=== PATIENT | female | born 1940 | race Caucasian/White ===

== ENCOUNTER 2023-02-02 13:47 | Emergency (ER) | payer MEDICARE, SELFPAY ==
--- NOTE | ~2023-02-02 | XR_ITS ---
EXAMINATION: XR wrist RT 2V INDICATION: Right radius fracture post reduction TECHNIQUE: Two views of the right wrist are obtained. COMPARISON: 1402 hours FINDINGS: A comminuted fracture of the distal radius is again seen. Alignment has been reduced to apt r-anatomic. An ulnar styloid avulsion is again seen. A ventral splint has been applied. No additional fracture is identified. IMPRESSION: 1. Comminuted distal radius fracture reduced to near-anatomic alignment. 2. Ulnar styloid avulsion. Reviewed, dictated and finalized at location B.
--- NOTE | ~2023-02-02 | XR_ITS ---
EXAM: XR wrist RT min 3V DATE: 02/02/2023 14:05 HISTORY: fall, RIGHT WRIST DEFORMITY . COMPARISON: None available. FINDINGS: Decreased mineralization. Transverse and comminuted extra-articular fracture of the distal right radius, with one half shaft width dorsal displacement, 32 degrees posterior angulation, and ap proximately 5 mm impaction. Mildly displaced left ulnar styloid fracture. No lytic or blastic lesion. Joint spaces are maintained. No erosion or periosteal change. Soft tissues within normal limits. IMPRESSION: Transverse, comminuted, displaced, angulated, and impacted extra-articular fracture of th e distal right radius. Mildly displaced right ulnar styloid fracture. Osteopenia. Reviewed, dictated and finalized at location K. IMPRESSION: Transverse, comminuted, displaced, angulated, and impacted extra-ar ticular fracture of the distal right radius. Mildly displaced right ulnar stylo id fracture. Osteopenia.
--- NOTE | ~2023-02-02 | CT_ITS ---
EXAMINATION: CT brain wo con, CT facial bones wo con DATE: 02/02/2023 15:16 INDICATION: Head and facial injury post fall TECHNIQUE: 1. Computed tomography (CT) of the head was performed without intravenous contrast. Sagittal and wei nal reconstructions were obtained. The mA was adjusted according to patient size. Iterative reconstru ction technique was employed. The dose-length product was 529.67 mGy-cm. 2. CT of the facial bones and maxillofacial region was performed without intravenous contrast. Sagitt al and coronal reconstructions were obtained. Automated exposure control and iterative reconstruction technique were employed. The dose-length product was 280.22 mGy-cm. COMPARISON: None. FINDINGS: Head CT: No calvarial fracture. 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 No acute intracranial h emorrhage, acute infarction or abnormal extra axial fluid collection. There is moderate scattered whi te matter hypoattenuation consistent with chronic small vessel ischemic disease. Ventricles are norm al and symmetric. No mass/mass effect. Maxillofacial CT: Mild soft tissue swelling along the superolateral left orbital rim. Bilateral globes appear intact wi th changes of bilateral intraocular lens replacement. No post septal inflammatory stranding. No maxil lofacial fractures. Specifically the walker of the orbits and paranasal sinuses, the nasal bones, zygo matic arches and mandible are all intact. Normal alignment at the bilateral temporal mandibular joint s with moderate left-sided and severe right-sided osteoarthritis. Maxilla is edentulous. Mild S-shape d bowing of the nasal septum which deviates towards the right anteriorly and towards the left posteri jessi, paralleling the contour of the turbinates with no evident acute fracture. Mucosal thickening al cindy the inferior right maxillary sinus. Mastoid air cells and middle ear cavities are clear. Moderate to severe spondylosis in the visualized mid to upper cervical spine. IMPRESSION: 1. 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 No calvarial fracture or acute intracranial process. 2. Left periorbital contusion without evident maxillofacial fracture. 3. Moderate scattered white matter hypoattenuation consistent with chronic small vessel ischemic dise ase. Reviewed, dictated and finalized at location A. IMPRESSION: 1. 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 No calvarial fracture or acute intracranial process. 2. Left periorbital contusion without evident maxillofacial fracture. 3. Moderate scattered white matter hypoattenuation consistent with chronic smal l vessel ischemic disease.
[2023-02-02 13:59] VITALS: BP 177/76; PULSE 72; RESP 18; TEMP 36.5; O2SAT 99
--- NOTE | 2023-02-02 14:37 | ED.GENADULT ---
HPI - General Adult General Chief complaint: Extremity Injury, Upper Stated complaint: fall, wrist deformity Time Seen by Provider: 02/02/23 14:10 History of Present Illness HPI narrative: 82-year-old female presented the ED for evaluation of right wrist pain. After lunch patient was leaving a restaurant and walked into the glass by the entrance causing her to strike her head and then followed back injuring her right wrist. Patient did receive a hematoma over the left eyebrow but denies any loss of consciousness. Patient does report right wrist pain. When patient fell back she denies striking head denies having loss of consciousness. Related Data Home Medications Medication Instructions Recorded Confirmed aspirin 81 mg tablet,delayed 81 mg PO DAILY 02/04/23 02/07/23 release calcium carbonate 600 mg-vitamin 1 tablet PO DAILY 02/04/23 02/07/23 D3 10 mcg (400 unit) tablet (Calcium 600 + D(3)) cholecalciferol (vitamin D3) 50 50 mcg PO DAILY 02/04/23 02/07/23 mcg (2,000 unit) tablet coenzyme Q10 10 mg capsule (Co 10 mg PO ONCE 02/04/23 02/07/23 Q-10) ibuprofen 200 mg tablet (Advil) 600 mg PO PRN PRN Pain 02/04/23 02/07/23 magnesium 250 mg tablet 250 mg PO DAILY 02/04/23 02/07/23 selenium 100 mcg tablet 100 mcg PO DAILY 02/04/23 02/07/23 simvastatin 20 mg tablet 20 mg PO DAILY 02/04/23 02/07/23 vitamin E 400 unit tablet 45 mg PO DAILY 02/04/23 02/07/23 Allergies Allergy/AdvReac Type Severity Reaction Status Date / Time No Known Allergies Allergy Verified 02/07/23 12:06 Review of Systems Review of Systems: All systems reviewed & are unremarkable except as noted in HPI and below PMFSH Past Medical History Medical History (Updated 02/07/23 @ 14:00 by Jose Arevalo MD) Colles' fracture of right radius Surgical History Surgical History (Updated 02/04/23 @ 08:56 by Екатерина Crawford) History of D&C Family History Family History (Updated 02/04/23 @ 09:01 by Екатерина Crawford) Father Heart disease Mother Cerebrovascular accident Sibling Lymphoma Social History Social History (Updated 02/04/23 @ 08:59 by Екатерина Crawford) Smoking status: Never smoker Alcohol intake: never Substance use: never Lack of Transportation: No Lack of Food: Never True Current Housing: I Have Housing Concerned About Future Housing: No Difficulty Paying Gas/Electric Bills: No Difficulty Paying for Meds: No Currently Unemployed: No Education: Bachelor's Degree Difficulty w/ Childcare or Family Care: No Living arrangements: alone Spiritual care concerns: No Exam Narrative: APPEARANCE: Well appearing, no pain, no distress, well-nourished. HEAD: normocephalic, atraumatic. EYES: PERRLA/EOMI, conjunctivae clear. NOSE: Normal no drainage NECK: Supple. No adenopathy, no masses. RESPIRATORY: Airway patent, respirations nonlabored. Clear to auscultation bilaterally, no rales, rhonchi, wheezing. CARDIOVASCULAR: Regular rate and rhythm without murmurs rubs or gallops. ABDOMINAL: Soft, nontender, nondistended, normal bowel sounds MUSCULOSKELETAL: No range of motion of right shoulder and right elbow, tenderness and deformity of right wrist. Neurovascular intact with normal range of motion and sensation of fingers NEURO: Alert. Cranial nerves II through XII intact. Neurologically intact SKIN: Warm, dry. Normal Color Course Course Emergency Course: 82-year-old female presented ED for evaluation of right wrist pain after having a ground-level fall. Patient just had lunch prior to arrival. X-ray does show a transverse comminuted displaced angulated and impacted extra-articular fracture of the distal right radius. Hematoma block of the right distal radius fracture was done and 15:07. Patient wrist was successfully reduced and appears to be improved on repeat x-ray. Patient and family are updated the results of the x-ray and splint care and on the importance of close follow-up with
[2023-02-02 16:49] VITALS: BP 156/84; PULSE 80; RESP 16; O2SAT 97
== END 2023-02-02 16:50 | disposition home or self-care (01) ==
PROVIDERS: Emergency Provider Emergency Medicine; PCP Internal Medicine Endocrinology, Diabetes & Metabolism
DX: S52.551A Other extraarticular fracture of lower end of right radius, initial encounter for closed fracture (principal); S52.611A Displaced fracture of right ulna styloid process, initial encounter for closed fracture; S00.12XA Contusion of left eyelid and periocular area, initial encounter; Z79.82 Long term (current) use of aspirin; M85.88 Other specified disorders of bone density and structure, other site; W22.09XA Striking against other stationary object, initial encounter
CPT/HCPCS: 25605; 29125; 70450; 70486; 73100; 73110; 99284

== ENCOUNTER 2023-02-04 09:49 | Outpatient (CLI) | payer MEDICARE, SELFPAY ==
--- NOTE | 2023-02-04 10:33 | ECG_ITS ---
Measurements Intervals [address] Rate: 54 P: 64 MS: 186 QRS: -19 QRSD: 80 T: 26 QT: 426 QTc: 405 Interpretive Statements SINUS BRADYCARDIA DELAYED PRECORDIAL R/S TRANSITION LEFT VENTRICULAR HYPERTROPHY AND ST-T CHANGE BASELINE ARTIFACT- I, II, III, AVR, AVL, AVF BORDERLINE ECG NO PREVIOUS ECG AVAILABLE FOR COMPARISON Electronically Signed On 02-04-2023 10:40:21 CDT by Patrick Bennett D.O.
== END 2023-02-04 09:50 | disposition home or self-care (01) ==
PROVIDERS: PCP Internal Medicine Endocrinology, Diabetes & Metabolism; Visit Provider Orthopaedic Surgery
DX: Z01.818 Encounter for other preprocedural examination (principal); E78.00 Pure hypercholesterolemia, unspecified; R00.1 Bradycardia, unspecified
CPT/HCPCS: 93005

== ENCOUNTER 2023-02-07 00:42 | Day surgery (SDC) | payer MEDICARE, SELFPAY ==
[2023-02-04 10:18] VITALS: BMI 23.1
--- NOTE | 2023-02-04 10:22 | PC.NURSE ---
Report to the Outpatient Waiting Room, entrance under the green pavilion located off [facility], at time _1130 on date __02/07/23 . Planned Procedure Time: _1330 . Time changes happen often and if your time is changed the preop area will call you the afternoon before. - You and your visitor will be asked to self-screen and do not enter if you have any COVID symptoms. - A mask is optional within the hospital at this time. Patients may have clear liquids (water, carbonated beverages, clear teas, apple juice) until 3 hours prior to surgery with a maximum of 20 ounces. - No food from midnight until time of surgery - Infants may have breast milk until 4 hours before surgery, infant formula 6 hours prior to surgery. - Children will be allowed to drink immediately following surgery. If applicable, please bring a bottle or sippy cup to assist with drinking. Juice, water, soda, and popsicles are readily available. For infants on formula, please bring formula the day of surgery. Pacifiers are allowed. Take the following medications with a SIP of water the morning of surgery: NONE DO NOT STOP ANY OF YOUR OTHER PRESCRIPTION MEDICATIONS PRIOR TO SURGERY ?EXCEPT THE FOLLOWING Medications to discontinue per physician __HOLD ASPIRIN, ADVIL,AND ALL VITAMINS OF TODAY Please no make-up, nail upper sorbian, hairspray, perfume, deodorant, or body powder the day of surgery. No jewelry (including any body piercings) or valuables the day of surgery, leave them at home. Please take a shower or bath the night before, or the morning of, surgery with an antibacterial soap. Wear comfortable, loose fitting clothing. Children are encouraged to wear pajamas. - Jewelry must be removed prior to entering the operating room. Rings and piercings that are not removed may be cut off. - The hospital will not accept responsibility for valuables. - Please leave all valuables, including medications, at home the day of surgery. If you are going home after surgery, a licensed water tanker driver must drive you home. - NO public transportation without another adult if you receive anesthesia. - We recommend that an adult stay with you for 24 hours following discharge. - We also recommend that you do not drive, make important decision, drink alcoholic beverages, or take any drugs that were not prescribed by your health care provider for at least 24 hours after your discharge time. For Pediatric surgeries, we recommend two adults accompany the child home. Follow any additional instructions given to you from your surgeon. If you or anyone in your household have experienced Covid symptoms in the past week, please notify your surgeon or the nurse liaison at the phone number below for possible testing. Telephone instructions given to __PATIENT AND SON DAN and asked if any additional questions and then verbalized understanding. Patient advised to call surgeon office or pre surgery nurse liaison [phone] if any additional questions.
[2023-02-04 10:32] VITALS: BP 187/87; PULSE 62; RESP 18; TEMP 36.9; O2SAT 99
[2023-02-07] VITALS (11 sets, daily range): BP systolic 133–183; BP diastolic 61–100; PULSE 57–79; RESP 12–18; TEMP 36.3–36.5; O2SAT 95–100
--- NOTE | ~2023-02-07 | XR_ITS ---
EXAMINATION: XR surgery orthopedic DATE: 02/07/2023 15:50 INDICATION: Distal right radius fracture. TECHNIQUE: 3 intraoperative fluoroscopic views of right wrist were obtained. I was not present. Fluor oscopy exposure time was 43 seconds. COMPARISON: Right wrist radiographs 02/02/23 FINDINGS: There is a comminuted fracture of distal radius in near-anatomic alignment status post open reduction internal fixation with volar plate and screws. There is an avulsion fracture of the ulnar styloid. Joint spaces are normal. IMPRESSION: 1. Comminuted fracture of distal radius status post open reduction internal fixation. 2. Avulsion fracture of the ulnar styloid. Reviewed, dictated and finalized at location A. IMPRESSION: 1. Comminuted fracture of distal radius status post open reduction internal fix ation. 2. Avulsion fracture of the ulnar styloid.
[2023-02-07] MEDS: ACETAMINOPHEN 500 MG TABLET 1000 MG PO (12:30)
[2023-02-07] MEDS: LACTATED RINGERS 1,000 ML 30 ML IV CONT ×2 (12:30→16:20)
--- NOTE | 2023-02-07 12:44 | WPDANESEPPF ---
Anes - Initial Pre Proc Eval Procedure: Operation Date: 02/07/23 13:30 Proposed Procedures p Open Reduction Internal Fixation Right Distal Radius Fracture - Jose Arevalo MD Date/Time: 02/07/23 12:44 Surgeon: Jose Arevalo MD Pre Op Diagnosis: right conchita fx Patient Data Age: 82 Gender: F Height: 1.7 m Weight: 65.7 kg Last Vital Signs Temp 36.5 C 02/07/23 12:39 Pulse 63 02/07/23 12:39 Resp 16 02/07/23 12:39 BP 183/73 H 02/07/23 12:39 Pulse Ox 100 02/07/23 12:39 O2 Del Method Room Air 02/07/23 12:39 Allergies Allergy/AdvReac Type Severity Reaction Status Date / Time No Known Allergies Allergy Verified 02/07/23 12:06 Home Medications Medication Instructions Recorded Confirmed Type hydrocodone 5 mg-acetaminophen 325 1 tablet PO Q8H PRN pain #10 tabs 02/02/23 02/04/23 Rx mg tablet aspirin 81 mg tablet,delayed 81 mg PO DAILY 02/04/23 02/07/23 History release calcium carbonate 600 mg-vitamin 1 tablet PO DAILY 02/04/23 02/07/23 History D3 10 mcg (400 unit) tablet (Calcium 600 + D(3)) cholecalciferol (vitamin D3) 50 50 mcg PO DAILY 02/04/23 02/07/23 History mcg (2,000 unit) tablet coenzyme Q10 10 mg capsule (Co 10 mg PO ONCE 02/04/23 02/07/23 History Q-10) ibuprofen 200 mg tablet (Advil) 600 mg PO PRN PRN Pain 02/04/23 02/07/23 History magnesium 250 mg tablet 250 mg PO DAILY 02/04/23 02/07/23 History selenium 100 mcg tablet 100 mcg PO DAILY 02/04/23 02/07/23 History simvastatin 20 mg tablet 20 mg PO DAILY 02/04/23 02/07/23 History vitamin E 400 unit tablet 45 mg PO DAILY 02/04/23 02/07/23 History oxycodone-acetaminophen 5 mg-325 1 - 2 tablet PO Q4-6H PRN pain #30 02/07/23 Rx mg tablet tabs Patient hx anesthesia problems: none Family hx anesthesia problems: none Results Review: All pre-operative results and documents have been reviewed as part of the pre-operative evaluation. [facility] Surgical History Surgical History (Updated 02/04/23 @ 08:56 by Екатерина Crawford) History of D&C Family History Family History (Updated 02/04/23 @ 09:01 by Екатерина Crawford) Father Heart disease Mother Cerebrovascular accident Sibling Lymphoma Social History Social History (Updated 02/04/23 @ 08:59 by Екатерина Crawford) Smoking status: Never smoker Alcohol intake: never Substance use: never Lack of Transportation: No Lack of Food: Never True Current Housing: I Have Housing Concerned About Future Housing: No Difficulty Paying Gas/Electric Bills: No Difficulty Paying for Meds: No Currently Unemployed: No Education: Bachelor's Degree Difficulty w/ Childcare or Family Care: No Living arrangements: alone Spiritual care concerns: No Anes - Eval Final PreProcedure Day of Procedure 02/07/23 12:44 Patient weight: normal Heart: regular rate and rhythm Lungs: clear to auscultation Airway: Mallampati scale class II Neurological: alert and oriented Last oral intake: >/= 8 hours ASA classification: II Emergent: no Anesthetic plan: proceed Anesthesia type and monitoring: general LMA and standard monitoring Results Review: All pre-operative results and documents have been reviewed as part of the pre-operative evaluation. Informed Consent: The patient's anesthetic plan and its attendant risks and benefits were discussed with the patient/family/POA. Questions were solicited and answers provided to the satisfaction of the patient/family/POA.
--- NOTE | 2023-02-07 13:58 | WPDHPUPDATE1 ---
History and Physical Update Update Date/Time: 02/07/23 13:58 History and Physical has been reviewed, including an updated exam of the patient. There are NO changes in the patient's condition. Risks, benefits, and alternatives have been discussed and questions answered. Patient agrees to proceed with procedure.
[2023-02-07] MEDS: KETOROLAC 15 MG/ML VIAL (*BKC) IV PUSH (14:03)
[2023-02-07] MEDS: ceFAZolin 2 GM/D5W 50 ML 2 GM/50 ML BAG IVPB (14:20)
[2023-02-07] MEDS: BUPIVACAINE/EPINEPHRINE 0.5% 50 ML VIAL 10 ML INFILTRATE (14:57)
--- NOTE | 2023-02-07 16:36 | SUR.PHASEI ---
1635: Simple mask removed.
[2023-02-07] MEDS: fentaNYL CITRATE INJ (*CRX) 100 MCG/2 ML VIAL 25 MCG IV PUSH ×2 (16:39→16:44)
--- NOTE | 2023-02-07 16:44 | W.PM.PROC2 ---
Procedure Note - Detailed Date of Procedure 02/07/23 Pre-op Diagnosis Right wrist displaced Colles fx Post-op Diagnosis Same Procedure Performed ORIF right distal radius fracture, with volar plate. Surgeon Jose Arevalo MD [employer]er Rebecca Jaramillo PA-C Anesthesia General Description of Procedure Preoperative antibiotics were given. A general anesthetic was administered. The hand was prepped and draped in the usual sterile fashion with a well-padded tourniquet. The limb was exsanguinated and the tourniquet inflated to 250 millimeters of mercury. A longitudinal incision was created over the flexor carpi radialis tendon. Dissection was brought down through the sheath. The pronator quadratus was identified and released off of the radius. 7 pounds of finger trap traction applied. The fracture was carefully exposed and cleared of debris. Reduction was obtained with traction and manipulation. Fluoroscopy was used to confirm anatomic reduction. The volar plate was placed on the radius and the position was confirmed. Provisional pins were placed. The dynamic cortical screw was applied. The plate was fine tuned and fluoroscopy was use to confirm that the joint would not be violated. Subsequent distal pins and screws were placed, followed by the proximal row. The wound was irrigated and closed. The tourniquet was released and meticulous hemostasis was confirmed. The skin was closed with 3-0 Monocryl suture and a running 4-0 Monocryl suture. Steri-Strips were applied on the skin. A sterile bulky dressing with a volar splint was applied. Physician assistant art director, Rebecca Angeles PA-C, required for surgery; including patient positioning, draping, tissue retraction, maintaining instrument position, assisting fracture reduction, wound closure, and dressing placement. Implants Accu Med proximal distal radius fracture plate. Estimated Blood Loss 20 Drains No Pathology None sent Complications No immediate complications Condition Stable Disposition PACU [facility] Billing Surgery - Charge Forward: Surgery Billing
[2023-02-07] MEDS: hydrALAZINE HCL 20 MG/ML VIAL 5 MG IV PUSH (16:57)
[2023-02-07] MEDS: oxyCODONE HCL (*CRX) 5 MG TAB IR PO (17:30)
== END 2023-02-07 18:18 | disposition home or self-care (01) ==
PROVIDERS: PCP Internal Medicine Endocrinology, Diabetes & Metabolism; Visit Provider Orthopaedic Surgery
PROC: (CPT 25575; principal; 2023-02-07 13:30)
DX: S52.531A Colles' fracture of right radius, initial encounter for closed fracture (principal); S52.611A Displaced fracture of right ulna styloid process, initial encounter for closed fracture; W18.30XA Fall on same level, unspecified, initial encounter; Z79.891 Long term (current) use of opiate analgesic; Z79.82 Long term (current) use of aspirin
CPT/HCPCS: 25607; 99199; A4565; A9270; C1713; J0360; J0690; J1100; J1885; J2405; J2704; J3010; J7120